=== PATIENT | male | born 1995 | race Caucasian/White ===

== ENCOUNTER 2017-10-04 11:19 | Emergency (ER) | payer OTHER ==
[2017-10-04 12:09] VITALS: BP 119/76
--- NOTE | 2017-10-04 12:43 | UC ---
Throat Pain/Nasal Etienne HPI - HPI Summary HPI Summary: pt with sinus congestion, pnd and sore throat x 5 days. green secretions. + fagigue and body aches + ear pain - popping No fever, chills no otc meds Pt's medications reviewed this visit - History of Current Complaint Chief Complaint: UCGeneralIllness Stated Complaint: SORE THROAT,HEADACHE Time Seen by Provider: 10/04/17 12:03 Hx Obtained From: Patient Onset/Duration: Gradual Onset, Lasting Days Severity: Moderate Pain Intensity: 7 - Allergies/Home Medications Allergies/Adverse Reactions: Allergies Allergy/AdvReac Type Severity Reaction Status Date / Time No Known Allergies Allergy Verified 10/04/17 12:04 PMH/Surg Hx/FS Hx/Imm Hx Previously Healthy: Yes - Surgical History Surgical History: Yes Surgery Procedure, Year, and Place: tonsillectomy-[facility]- A CHILD, right knee surgery 2014 - Family History Family History: no known family history of cardio-vascular disorders - Social History Occupation: Employed Full-time Lives: With Family Alcohol Use: None Substance Use Type: None Smoking Status (MU): Never Smoked Tobacco Type: Smokeless Tobacco Have You Smoked in the Last Year: No Review of Systems Constitutional: Fatigue ENT: Sore Throat, Ear Ache, Sinus Congestion, Sinus Pain/Tenderness Respiratory: Cough All Other Systems Reviewed And Are Negative: Yes Physical Exam Triage Information Reviewed: Yes Appearance: Well-Appearing, No Pain Distress, Well-Nourished Vital Signs: Initial Vital Signs Temp 98.8 F 10/04/17 12:05 Pulse 98 10/04/17 12:05 Resp 16 10/04/17 12:05 BP 119/76 10/04/17 12:05 Pulse Ox 99 10/04/17 12:05 Vital Signs Reviewed: Yes Eye Exam: Normal ENT: Positive: Nasal congestion, Sinus tenderness, Uvula midline - no exudate mild liseth, Other - mild erythema. Negative: TMs normal - fluid right TM no erythema Dental Exam: Normal Neck exam: Normal Neck: Positive: Supple, Nontender, No Lymphadenopathy Respiratory Exam: Normal Respiratory: Positive: Chest non-tender, Lungs clear, Normal breath sounds, No respiratory distress Cardiovascular Exam: Normal Cardiovascular: Positive: RRR, No Murmur Abdominal Exam: Normal Abdomen Description: Positive: Nontender, No Organomegaly, Soft Bowel Sounds: Positive: Present Musculoskeletal Exam: Normal Neurological: Positive: Alert Psychological Exam: Normal Throat Pain/Nasal Course/Dx - Course Course Of Treatment: Pt with sinus congestion, pnd and ear fullness. pt turbinates inflammed and boggy. neg strep. rx zpack. flonase. hydrate. motrin/apap. return precautions - Differential Dx/Diagnosis Provider Diagnoses: sinusitis Discharge - Sign-Out/Discharge Documenting (check all that apply): Discharge - Discharge Plan Condition: Stable Disposition: HOME Prescriptions: Azithromycin TAB* [Zithromax TAB (Z-MORRIS) 250 mg #6 tabs] 2 tab PO .TODAY, THEN 1 DAILY #1 morris Fluticasone NASAL SPRAY 50MCG* [Flonase NASAL SPRAY 50MCG*] 2 spray BOTH NARES DAILY #1 btl Patient Education Materials: Rhinosinusitis (ED) Forms: *Work Release Referrals: No Primary Care Phys,NOPCP [Primary Care Provider] - Additional Instructions: - Stay well hydrated. Drink plenty of non-alcoholic, non-caffinated beverages. - Alternate ibuprofen (Advil, Motrin) 600mg and Tylenol every 3 hours for pain or fever. Take with food. Do NOT take for more than 4-5 days. - These infections are spread by secretions - do NOT share eating or drinking utensils - clean items you share with other people such as cell phones, computer mouse, TV remote, computer tablets,etc. Once you have been on antibiotics for 2 days, change your toothbrush and your pillowcase. - get plenty of restful sleep - use your nasal spray as instructed - humidify the air in the room where you sleep - boil water, run a hot steam shower, vaporizer, cups of water by heat register - okay to take over the counter decongestant and cough medication - contact your doctor or return with questions or concerns - Billing Disposition and Condition Condition: STABLE Disposition: HOME
== END 2017-10-04 12:56 | disposition home or self-care (01) ==
LOC: UCCORT 11:19
DX: J34.89 Other specified disorders of nose and nasal sinuses (principal)
CPT/HCPCS: 87651; 99212; G0463

== ENCOUNTER 2017-12-18 20:03 | Emergency (ER) | payer OTHER ==
[2017-12-18 20:21] VITALS: BP 119/77
--- NOTE | 2017-12-18 20:32 | UC ---
Abdominal Pain Male HPI - HPI Summary HPI Summary: 22 yo male with painful lump noted proximal to umbilicus no n/v noted today very tender - History of Current Complaint Chief Complaint: UCAbdominalPain Stated Complaint: ? HERNIA Time Seen by Provider: 12/18/17 20:23 Hx Obtained From: Patient Onset/Duration: Sudden Onset, Lasting Hours Severity Initially: Moderate Severity Currently: Moderate Pain Intensity: 7 Pain Scale Used: 0-10 Numeric Location: Other - umbilical Radiates: No Character: Aching Aggravating Factor(s): Other - touch/worse sitting Alleviating Factor(s): Position - better supine Associated Signs And Symptoms: Positive: Negative - Allergies/Home Medications Allergies/Adverse Reactions: Allergies Allergy/AdvReac Type Severity Reaction Status Date / Time No Known Allergies Allergy Verified 10/04/17 12:04 Home Medications: Home Medications NK [No Home Medications Reported] 12/18/17 [History Confirmed 12/18/17] PMH/Surg Hx/FS Hx/Imm Hx Previously Healthy: Yes - Surgical History Surgical History: Yes Surgery Procedure, Year, and Place: tonsillectomy-[facility]- A CHILD, right knee surgery 2014 - Family History Known Family History: Positive: Hypertension Family History: no known family history of cardio-vascular disorders - Social History Alcohol Use: None Substance Use Type: None Smoking Status (MU): Never Smoked Tobacco Type: Smokeless Tobacco Have You Smoked in the Last Year: No Review of Systems Constitutional: Negative Skin: Negative Eyes: Negative ENT: Negative Respiratory: Negative Cardiovascular: Negative Gastrointestinal: Abdominal Pain Genitourinary: Negative Motor: Negative Neurovascular: Negative Musculoskeletal: Negative Neurological: Negative Psychological: Negative Is Patient Immunocompromised?: No All Other Systems Reviewed And Are Negative: Yes Physical Exam Triage Information Reviewed: Yes Appearance: Well-Appearing, No Pain Distress, Well-Nourished Vital Signs: Initial Vital Signs Temp 99 F 12/18/17 20:18 Pulse 87 12/18/17 20:18 Resp 16 12/18/17 20:18 BP 119/77 12/18/17 20:18 Pulse Ox 100 12/18/17 20:18 Vital Signs Reviewed: Yes Eyes: Positive: Conjunctiva Clear ENT: Positive: Hearing grossly normal. Negative: Nasal congestion, Nasal drainage, Sinus tenderness, Uvula midline Neck: Positive: Supple, Nontender Respiratory: Positive: Lungs clear, Normal breath sounds, No respiratory distress, No accessory muscle use Cardiovascular: Positive: RRR, No Murmur Abdomen Description: Positive: No Organomegaly, Soft, Hernia @ - ? small umbilical hernia/tender. Negative: Nontender, Distended, Guarding Bowel Sounds: Positive: Hyperactive Musculoskeletal: Positive: Strength Intact, ROM Intact, No Edema Neurological: Positive: Alert Psychological Exam: Normal Re-Evaluation - Re-Evaluation First Eval Re-Evaluation Time: 20:58 Change: Unchanged - pt placed in [place]/ice pack unable to reduce marked pain with light palpation Abd Pain Male Course/Dx - Course Course Of Treatment: d/w Nick Peterson [facility]NA[facility] at [facility]. pt elects to go to ER via POV - Differential Dx/Clinical Impression Provider Diagnoses: umbilical pain/mass. ? incarcerated hernia Discharge - Sign-Out/Discharge Documenting (check all that apply): Discharge/Admit/Transfer - Discharge Plan Condition: Stable Disposition: TRANS HIGHER LVL OF CARE FAC Referrals: No Primary Care Phys,NOPCP [Primary Care Provider] - Additional Instructions: to ER for a higher level of care I am concerned you may have an incarcerated umbilical hernia Don't eat or drink - Billing Disposition and Condition Condition: STABLE Disposition: Trans Higher Lvl of Care Fac
== END 2017-12-18 21:02 | disposition short-term general hospital (02) ==
LOC: UCCORT 20:03
DX: R10.33 Periumbilical pain (principal); R19.05 Periumbilic swelling, mass or lump
CPT/HCPCS: 99212; G0463